=== PATIENT | female | born 1965 | race Caucasian/White ===

== ENCOUNTER → 2024-01-01 07:03 | Outpatient (REF) | payer BC, SELFPAY | LOC: WDC 07:03 | PROVIDERS: ATTENDING PHYSICIAN Obstetrics & Gynecology | DX: Z12.31 Encounter for screening mammogram for malignant neoplasm of breast (principal) | CPT/HCPCS: 77063; 77067 ==

== ENCOUNTER → 2025-01-29 14:07 | Outpatient (REF) | payer BC, SELFPAY | LOC: WDC 14:07 | PROVIDERS: ATTENDING PHYSICIAN Obstetrics & Gynecology; FAMILY PHYSICIAN Physician Assistant | DX: Z12.31 Encounter for screening mammogram for malignant neoplasm of breast (principal) | CPT/HCPCS: 77063; 77067 ==

== ENCOUNTER → 2025-02-10 12:31 | Outpatient (REF) | payer BC, SELFPAY | LOC: RCS 12:31 | PROVIDERS: ATTENDING PHYSICIAN Physician Assistant | DX: R07.89 Other chest pain (principal); Z00.8 Encounter for other general examination | CPT/HCPCS: 93017 ==

== ENCOUNTER 2025-02-21 06:22 | Day surgery (SDC) | payer BC, SELFPAY ==
[2025-02-21] VITALS (11 sets, daily range): BP systolic 106–141; BP diastolic 49–92; BMI 25.7
[2025-02-21] MEDS: NSS 197 ML IV (07:22)
--- NOTE | 2025-02-21 09:51 | ITS.CL.CATH ---
[employer] Teacher - Catheterization
Cardiac Catheterization
Procedure Report:
CARDIAC CATHETERIZATION REPORT
Date of Procedure: 02/21/2025
Referring: Jose Woods M.D., Ph.D.
INDICATION: Abnormal stress test, familial hyperlipidemia, family history of premature coronary artery disease.
PROCEDURE:
1. Left heart catheterization.
2. Coronary angiography.
A total of 28 minutes of procedural/moderate sedation was utilized. An independent hospitalist medical director was present to assist with and help manage the patient's level of consciousness and physiologic status.
ACCESS:
1. Attempted right radial access, unsuccessful as the wire could not be advanced beyond the proximal radial artery.
2. 6 Danish right common femoral artery using a modified Seldinger technique with a micropuncture kit under ultrasound guidance. Ultrasound image obtained.
CATHETERS:
1. 5 Danish JR4.
2. 5 Danish JL 3.5.
HEMODYNAMIC DATA
Weight (kg): 65.7
AO (s/d/x, mmHg): 136/73/99
LV (s/x mmHg): 136/10
LEFT VENTRICULOGRAPHY: Not performed.
CORONARY ANGIOGRAPHY
Dominance: Right.
Left Main: Normal size, bifurcating vessel. There is no coronary artery disease.
LAD: Normal size vessel giving rise to 1 significant diagonal. There is no coronary artery disease.
Ramus: Congenitally absent.
Circumflex: Normal size vessel giving rise to 2 obtuse marginals. There is no coronary artery disease. The obtuse marginals are severely tortuous.
RCA: Large size, dominant vessel with a significant posterolateral branch. There is no coronary artery disease. Of note, injection of the right coronary artery induced significant T wave inversion.
INTERVENTION(S)
None.
Closure Device: 6 Danish Angio-Seal.
Radiation (mGy): 159
DAP (cm2.Gy): 8.549
Fluoroscopy time (minutes): 1.4
CONCLUSIONS
1. Right dominant circulation with no coronary artery disease.
2. High suspicion for endothelial dysfunction given significant T wave/EKG changes with injection of the right coronary artery.
3. Normal filling pressures (LVEDP = 10 mmHg at 65.7 kg).
RECOMMENDATIONS:
1. Expectant management after cardiac catheterization via right common femoral approach.
2. Limited weight bearing for one week.
3. Start amlodipine 2.5 mg daily.
4. Stable for outpatient follow-up.
Copy to: Jose Woods M.D., Ph.D., Jessenia Banerjee PA-C
Fabien Barth, , FACC, FACP
== END 2025-02-21 12:45 | disposition home or self-care (01) ==
LOC: CATH 06:22
PROVIDERS: ATTENDING PHYSICIAN Internal Medicine Cardiovascular Disease; FAMILY PHYSICIAN Physician Assistant; OTHER PHYSICIAN Internal Medicine; OTHER PHYSICIAN Internal Medicine Cardiovascular Disease
DX: R07.89 Other chest pain (principal); E78.49 Other hyperlipidemia; Z82.49 Family history of ischemic heart disease and other diseases of the circulatory system; R94.39 Abnormal result of other cardiovascular function study
CPT/HCPCS: 99152; 99153; 93458; C1760; C1894; Q9967

== ENCOUNTER → 2025-03-07 10:08 | Outpatient (REF) | payer BC, SELFPAY | LOC: RAD 10:08 | PROVIDERS: ATTENDING PHYSICIAN Physician Assistant | DX: M85.80 Other specified disorders of bone density and structure, unspecified site (principal); E04.1 Nontoxic single thyroid nodule | CPT/HCPCS: 76536; 77080 ==

== ENCOUNTER 2025-09-06 11:23 | Emergency (ER) | payer BC, SELFPAY ==
[2025-09-06 11:32] VITALS: BP 186/90
--- NOTE | 2025-09-06 12:48 | ED.GENMED ---
History of Present Illness
General
Chief Complaint: Numbness
Time Seen by Provider: 09/06/25 12:48
History of Present Illness
History of Present Illness:
FOCUSED PAST MEDICAL HISTORY
- Asthma, kidney stones
REVIEW OF OLD RECORDS
- The patient had a heart catheterization that showed a 'right dominant circulation with no coronary artery disease but there was high suspicion for endothelial dysfunction given significant T wave and EKG abnormalities with injection of the right
coronary artery'. That time the patient was started on amlodipine.
Note:
CHIEF COMPLAINT(S)
Tingling and numbness in the right arm.
HISTORY OF PRESENT ILLNESS
The patient is a 59-year-old female who presented with tingling and numbness in her right arm that began last night. The symptoms involve the entire right arm, from the neck down to the fingertips. The patient had a similar minimal episode after a
heart catheterization in February, but it was less severe. She reports experiencing the tingling and numbness continuously since this morning. There is no associated weakness as she is able to move her arm without difficulty.
The patient also described experiencing a sensation joaquina to a toothache extending from her arm to her ear. She mentioned having intermittent chest pain, particularly when lifting heavy objects over the past month, but denied any issues with her
right leg. The patient is concerned because the symptoms are isolated to the right side of her body.
During the examination, the patient was able to perform several motor tasks normally, indicating no significant motor deficit. The sensation of numbness persists on the right side compared to the left. There was discussion regarding the possibility
of cervical radiculopathy as a cause of her symptoms.
PAST MEDICAL AND SURGICAL HISTORY
The patient had a heart catheterization in February.
REVIEW OF SYSTEMS
- Neurological: Tingling and numbness in the right arm, sensation joaquina to a toothache radiating to the ear.
- Cardiovascular: Intermittent chest pain during exertion, specifically when lifting heavy objects.
- Musculoskeletal: No weakness or difficulty in movement of the affected arm, no issues with the leg.
PHYSICAL EXAM
General: Alert, no acute distress.
Skin: Warm, dry.
Head: Normocephalic, atraumatic.
Neck: Supple, trachea midline.
Eye, Ears, Nose, Mouth, and Throat: Oral mucosa moist.
Cardiovascular: Normal peripheral perfusion, No edema. Regular rate and rhythm
Respiratory: Respirations are non-labored. Breath sounds are clear and equal
Gastrointestinal: Abdomen nondistended.
Back: Normal range of motion, Normal alignment.
Musculoskeletal: Normal range of motion, normal strength.
Neurological: Alert and oriented to person, place, time, and situation, no motor deficits, normal finger-nose testing, there is some proximal sensory deficits in the right upper extremity, no involvement to the legs, no aphasia, no dysarthria
Psychiatric: Cooperative, appropriate mood & affect.
PLAN
The plan discussed includes obtaining a Computed Tomography (CT) scan of the brain and cervical spine to rule out any serious conditions. Initiating a trial of steroids for a few days was considered to decrease possible inflammation. The patient may
need to follow up with a intensive care medicine specialist or orthopedic doctor if symptoms persist.
DIFFERENTIAL DIAGNOSIS
The differential diagnosis includes, in no particular order and is not limited to:
1. Cervical radiculopathy
2. Stroke or Transient Ischemic Attack (unlikely due to isolated arm symptoms)
3. Carotid artery disease (less likely given symptoms)
4. Peripheral neuropathy
5. Brachial plexus injury
6. Cervical spondylosis
7. Thoracic outlet syndrome
8. Multiple sclerosis
9. Myocardial ischemia presenting atypically
10. Migraines with aura or complex migraines.
RADIOLOGY
- CT head and C-spine obtained; CT head obtained which was negative, C-spine showed some hypertrophic degenerative changes including mild degenerative encroachment upon the right neural foramen at C5-6
EKG
- Sinus 59, no acute ST abnormality
LABS
- Unable to obtained but I also do not feel these are going to be clinically significant
DIAGNOSIS
Cervical radiculopathy
Will place on steroids over the next several days, she states she may follow-up with the orthopedist through [facility] orthopedics but I have also given her the contact information for neurosurgery
The patient has no neurologic deficits on exam but does have some mild sensory deficits proximal right upper
Past History
Past History
ED Past Medical History: Other (Kidney stones X2, Allergie and activity induced asthma.)
Social History
Tobacco: Non-smoker
Alcohol: None
Personal:
Living: with family
Phy Exam
Physical Exam
Physical Exam:
See HPI
Course
Orders/Labs/Results
Orders:
Orders
09/06/25 11:25
Electrocardiogram (*1) Urgent
Reason for Study: Chest Pain
EKG- Treatment ONCE
09/06/25 12:[address]
CT Cervical Spine W/o Iv Contr Urgent
Comment:
Reason For Exam: new paresthesias RUE
CT Head W/o Iv Contrast Urgent
Comment:
Reason For Exam: new paresthesias RUE
Prednisone [Deltasone] 50 mg PO NOW STA
09/06/25 11:36
09/06/25 11:36
Vital Signs
Initial and Last Documented VS:
Initial Vital Signs
Temp Pulse Resp BP Pulse Ox
36.8 C 61 18 186/90 100
09/06/25 11:32 09/06/25 11:32 09/06/25 11:32 09/06/25 11:32 09/06/25 11:32
Last Documented Vital Signs
Temp Pulse Resp BP Pulse Ox
36.8 C 60 17 154/79 99
09/06/25 11:32 09/06/25 13:00 09/06/25 13:00 09/06/25 13:00 09/06/25 13:00
*Pulse Oximetry
SaO2: 100
Oxygen Mode of Delivery: Room air
Patient hypoxic: no
*Critical Care Note
Total Time (30-74mins, 75-104mins- exclusive of procedures): Not Applicable
ED Attending Note
-
Portions of this chart may have been created with voice recognition software.� Occasional wrong word or��sound alike� substitutions may have occurred due to the inherent limitations of voice recognition software.
Discharge Plan
Departure
Patient Disposition: Home (Routine Discharge)
Date of Disposition: 09/06/25
Time of Disposition: 14:37
Patient with high blood pressure during this ER visit?: Yes
Discharge Problem:
Cervical disc disorder with radiculopathy of mid-cervical region
Instructions: Radiculopathy of the neck and back (including sciatica), BLOOD PRESSURE
Prescriptions:
New
prednisone 50 mg tablet
50 mg PO DAILY Qty: 4 0RF
No Action
albuterol sulfate [Ventolin HFA] 90 mcg/actuation Hfa Aerosol Inhaler
1 puff INHALATION 6XD PRN (Reason: shortness of breath)
amlodipine 2.5 mg tablet
2.5 mg PO DAILY Qty: 30 6RF
Referrals:
Saqib Samayoa DO [Non-Admitting Privileges, Orthopedics]
Jessenia Banerjee PA-C [Family Provider, Internal Medicine]
Machelle Carrillo MD [Active, Neurosurgery]
Activity Restrictions/Additional Instructions:
CAT scan of the brain was normal but there is some 'hypertrophic degenerative changes including mild degenerative encroachment upon the right neural foramen at the C5-6 level). Follow-up with [facility] orthopedics or with neurosurgery such as
Dr. Carrillo.
Interventions
Interventions:
*Risk Screen - Suicide Last Done: 09/06/25 11:26
*General Assessment Last Done: 09/06/25 12:58
*Neglect/Abuse Screening Last Done: 09/06/25 12:58
*ED COVID-19 Vaccine History Last Done: 09/06/25 12:58
*ED Influenza Vaccine History Last Done: 09/06/25 12:58
*Nursing Disposition Last Done: 09/06/25 14:59
ED- Neurological Assessment Last Done: 09/06/25 12:59
Discharge Date and Time
Print Language: ITALIAN
[2025-09-06 12:58] VITALS: BMI 25.8
[2025-09-06 13:00] VITALS: BP 154/79
[2025-09-06] MEDS: DELTASONE 50 MG PO (13:03)
--- NOTE | 2025-09-06 15:50 | ED.ADDNOTE ---
ED Addendum
ED Addendum
ED Addendum Note:
SUMMARY OF ENCOUNTER
The patient presented to the emergency department with tingling and numbness in the right arm, which has persisted since the previous night. After conducting a CT scan, degenerative changes in the cervical spine were noted, with possible nerve
impingement at the C5-6 level. The radiologist mentioned hypertrophic changes and encroachment on the nerve at this level, suggesting cervical radiculopathy. The patient exhibited normal movement despite sensory changes, supporting a preliminary
assessment of nerve compression. The patient was advised that while our facility lacks in-house neurosurgical care, a follow-up with a neurosurgeon or infection control specialist is recommended for further evaluation and management.
ASSESSMENT
Cervical radiculopathy due to possible nerve compression at the C5-6 level.
PLAN
Continue the current course of steroids for a few more days to help manage inflammation. Provide the patient with contact information for a neurosurgeon in the area for outpatient follow-up. Discuss the management plan and ensure the patient
understands the necessity of following up with a specialist.
PATIENT EDUCATION AND COUNSELING
The patient was educated about possible nerve impingement and the significance of sensory changes. Encouraged to follow up with a neurosurgeon for further evaluation. The distinction between spine specialists and general orthopedic surgeons was
discussed, emphasizing the need for specialized care.
FOLLOW-UP INSTRUCTIONS
Contact a neurosurgeon for an outpatient evaluation. The patient was provided with contact information for local specialists.
MEDICATION RECONCILIATION
Continue steroids as prescribed for inflammation management. Prescription details sent to the pharmacy.
MEDICAL DECISION MAKING
-Chronic conditions affecting care: Degenerative changes in the cervical spine potentially leading to cervical radiculopathy.
-Differential diagnosis includes:
1. Cervical radiculopathy
2. Stroke or Transient Ischemic Attack
3. Carotid artery disease
4. Peripheral neuropathy
5. Brachial plexus injury
6. Cervical spondylosis
7. Thoracic outlet syndrome
8. Multiple sclerosis
9. Myocardial ischemia presenting atypically
10. Migraines with aura or complex migraines
-Data:
Category [address] scan, noting degenerative spinal changes and possible nerve encroachment at C5-6, guiding the management plan.
-Risk:
Consideration of Admission/Observation: Escalation of care including admission/observation was considered given the complexity and risk of the patients presenting complaint and exam findings. However, ultimately I feel the patient is safe for
outpatient management with close follow up. Reasoning: Work-up reassuring, does not reveal any acute life/organ threatening processes, patients symptoms well controlled upon reevaluation, reexamination is reassuring, vitals are stable, patient
agreeable with discharge, reliable for follow-up.
DIAGNOSIS
Cervical radiculopathy due to degenerative changes and possible nerve encroachment at C5-6 (M54.12).
== END 2025-09-06 14:59 | disposition home or self-care (01) ==
LOC: EMR 11:23
PROVIDERS: EMERGENCY PHYSICIAN Emergency Medicine; FAMILY PHYSICIAN Physician Assistant
DX: M47.22 Other spondylosis with radiculopathy, cervical region (principal); R03.0 Elevated blood-pressure reading, without diagnosis of hypertension; J45.990 Exercise induced bronchospasm
CPT/HCPCS: 99284; 70450; 72125; 93005